=== PATIENT | male | born 1970 | race Caucasian/White ===

== ENCOUNTER 2016-08-14 18:14 | Emergency (ER) | payer OTHER ==
[~2016-08-14] VITALS: Ht 172.7 cm; Wt 75.4 kg
[2016-08-14 18:48] LABS: HEMATOCRIT 43.2 % (38.0-50.0); MCH 27.2 PG (29.0-34.0); MCV 79.9 FL (86-99); MEAN PLAT.VOLUME 8.6 uM^3 (9.0-12.4); PLATELET COUNT 612 K/uL (156-360); RBC DIS.WIDTH-CV 12.5 % (11.8-14.6); RBC DIS.WIDTH-SD 35.5 % (39-53); RED BLOOD COUNT 5.41 M/uL (4.00-5.50); WHITE BLOOD COUNT 14.4 K/uL (4.1-10.2)
[2016-08-14 18:57] LABS: CHLORIDE 99 mEq/L (99-109); POTASSIUM 3.4 mEq/L (3.7-5.4); SODIUM 135 mEq/L (136-147)
[2016-08-14 18:59] LABS: GLUCOSE 91 mg/dL (70-99)
[2016-08-14 19:00] LABS: ANION GAP 14 MEQ/L (2-14)
[2016-08-14 19:01] LABS: TOTAL BILIRUBIN 1.2 mg/dL (0.0-1.0)
[2016-08-14 19:03] LABS: ALKALINE PHOSPHATASE 72 IU/L (3-129); GFR ESTIMATE (CALCULATED) > 59 mL/min/
[2016-08-14 19:04] LABS: UREA NITROGEN (BUN) 11 mg/dL (9-23)
[2016-08-14 19:06] LABS: LIPASE 27 U/L (1.0-51.0)
[2016-08-14] MEDS ORDERED: PENTASA500 MG PO (22:18)
[2016-08-14] MEDS ORDERED: ZOFRAN ODT4 MG PO (22:18)
[2016-08-14] MEDS ORDERED: FLAGYL500 MG PO (22:18)
[2016-08-14] MEDS ORDERED: PERCOCET 5/31 TABLET PO (22:18)
[2016-08-14] MEDS ORDERED: LEVSIN-SL0.125 MG SL (22:31)
[2016-08-14 22:53] LABS: INTERNAL CONTROL VALID? YES
[2016-08-14 23:23] VITALS: BP 144/100
[2016-08-14 23:31] LABS: C DIFF TOXIN NEGATIVE (NEGATIVE)
[2016-08-14 23:32] LABS: PROBE CHECK PASS; SPECIMEN PROCESSING CONTROL PASS
== END 2016-08-14 23:25 | disposition home or self-care (01) ==
LOC: EME 18:14
PROVIDERS: Nurse Practitioner Family; Physician Assistant
DX: K50.90 Crohn's disease, unspecified, without complications (principal); D72.829 Elevated white blood cell count, unspecified; R10.9 Unspecified abdominal pain
CPT/HCPCS: 74177; 80053; 81003; 83630; 83690; 85027; 86850; 86900; 86901; 87177; 87493; 87506; 99281; 99285; J1200; J2270; J2405; J7030

== ENCOUNTER 2016-09-04 22:37 | Emergency (ER) | payer OTHER ==
[~2016-09-04] VITALS: Ht 172.7 cm; Wt 75.8 kg
[~2016-09-04 22:37] MED LIST: FLAGYL500 MG PO; LEVSIN-SL0.125 MG SL; PENTASA500 MG PO; PERCOCET 5/31 TABLET PO; ZOFRAN ODT4 MG PO
[2016-09-04 23:18] LABS: ADD MIUA? NO; BILIRUBIN NEGATIVE; BLOOD NEGATIVE; COLOR YELLOW ((YELLOW)); GLUCOSE (STRIP) NEGATIVE; KETONES NEGATIVE; LEUKOCYTES NEGATIVE; NITRITE NEGATIVE; PROTEIN (STRIP) NEGATIVE; SPECIFIC GRAVITY 1.014 (1.000-1.030); UCUL ADDED? NO; UROBILINOGEN 0.2 MG/DL (0.2-1.0)
[2016-09-04 23:27] LABS: EOSINOPHIL (%) 2.9 % (0-5); EOSINOPHIL COUNT 0.4 K/uL (0-0.3); HEMATOCRIT 42.4 % (38.0-50.0); IMMATURE GRANULOCYTE (%) 0.3 % (0.0-0.7); IMMATURE GRANULOCYTE COUNT 0.1 K/uL; INSTRUMENT ABS NEUTROPHIL CT 10.1 K/uL; LYMPHOCYTE COUNT 2.7 K/uL (1.0-2.8); MCH 26.3 PG (29.0-34.0); MCHC 32.3 G/DL (30.0-36.0); MCV 81.4 FL (86-99); MEAN PLAT.VOLUME 8.6 uM^3 (9.0-12.4); MONOCYTE (%) 7.3 % (3-12); MONOCYTE COUNT 1.1 K/uL (0-0.8); NEUTROPHIL (%) 70.2 % (45-76); NEUTROPHIL COUNT 10.1 K/uL (1.8-6.4); PLATELET COUNT 643 K/uL (156-360); RBC DIS.WIDTH-CV 12.9 % (11.8-14.6); RBC DIS.WIDTH-SD 38.1 % (39-53); RED BLOOD COUNT 5.21 M/uL (4.00-5.50); WHITE BLOOD COUNT 14.4 K/uL (4.1-10.2)
[2016-09-04 23:39] LABS: CHLORIDE 103 mEq/L (99-109); SODIUM 139 mEq/L (136-147)
[2016-09-04 23:41] LABS: GLUCOSE 114 mg/dL (70-99)
[2016-09-04 23:43] LABS: ANION GAP 12 MEQ/L (2-14); TOTAL BILIRUBIN 0.7 mg/dL (0.0-1.0)
[2016-09-04 23:45] LABS: ALKALINE PHOSPHATASE 78 IU/L (3-129); GFR ESTIMATE (CALCULATED) > 59 mL/min/
[2016-09-04 23:46] LABS: UREA NITROGEN (BUN) 9 mg/dL (9-23)
[2016-09-04 23:48] LABS: LIPASE 41 U/L (1.0-51.0)
[2016-09-05 00:07] VITALS: BP 140/96
[2016-09-05] MEDS ORDERED: PENTASA500 MG PO (00:48)
[2016-09-05] MEDS ORDERED: PERCOCET 5/31 TABLET PO (00:48)
[2016-09-05] MEDS ORDERED: FLAGYL500 MG PO (00:48)
[2016-09-05] MEDS ORDERED: ZOFRAN ODT4 MG PO (00:48)
[2016-09-05] MEDS ORDERED: PREDNISONE20 MG PO (00:48)
[2016-09-05 00:53] LABS: C DIFF TOXIN NEGATIVE (NEGATIVE)
[2016-09-05 00:54] LABS: PROBE CHECK PASS; SPECIMEN PROCESSING CONTROL PASS
[2016-09-05] MEDS ORDERED: POTASSIUM CHLO10 ME4 PO (01:14)
[2016-09-06] MEDS ORDERED: DELZICOL400 M1 PO (23:53)
== END 2016-09-05 01:14 | disposition home or self-care (01) ==
LOC: EME 22:37
PROVIDERS: Physician Assistant
DX: K50.90 Crohn's disease, unspecified, without complications (principal); Z91.14 Patient's other noncompliance with medication regimen
CPT/HCPCS: 74176; 80053; 81003; 83605; 83690; 85025; 85027; 87206; 87329; 87493; 87506; 99281; 99285; J1885; J2405; J3010; J7030; J7512

== ENCOUNTER 2016-09-06 23:30 | Inpatient (IN) | payer OTHER ==
[~2016-09-06] VITALS: Ht 172.7 cm; Wt 75.0 kg
[~2016-09-06 23:30] MED LIST changes: +POTASSIUM CHLO10 ME4 PO; +PREDNISONE20 MG PO
[2016-09-06] MEDS ORDERED: DELZICOL400 M1 PO (23:53)
[2016-09-07 00:06] LABS: HEMATOCRIT 44.9 % (38.0-50.0); MCH 26.8 PG (29.0-34.0); MCHC 32.3 G/DL (30.0-36.0); MEAN PLAT.VOLUME 8.7 uM^3 (9.0-12.4); PLATELET COUNT 678 K/uL (156-360); RBC DIS.WIDTH-CV 13.4 % (11.8-14.6); RBC DIS.WIDTH-SD 40.9 % (39-53); RED BLOOD COUNT 5.41 M/uL (4.00-5.50); WHITE BLOOD COUNT 20.3 K/uL (4.1-10.2)
[2016-09-07 00:08] LABS: CHLORIDE 106 mEq/L (99-109); POTASSIUM 3.5 mEq/L (3.7-5.4); SODIUM 142 mEq/L (136-147)
[2016-09-07 00:10] LABS: GLUCOSE 113 mg/dL (70-99)
[2016-09-07 00:11] LABS: ANION GAP 10 MEQ/L (2-14)
[2016-09-07 00:14] LABS: ALKALINE PHOSPHATASE 75 IU/L (3-129); GFR ESTIMATE (CALCULATED) > 59 mL/min/
[2016-09-07 00:15] LABS: UREA NITROGEN (BUN) 12 mg/dL (9-23)
[2016-09-07 00:17] LABS: LIPASE 22 U/L (1.0-51.0); TOTAL BILIRUBIN 0.9 mg/dL (0.0-1.0)
[2016-09-07] MEDS ORDERED: HYOSCYAMINE0.125 M1 SL (01:05)
[2016-09-07] MEDS ORDERED: PREDNISONE20 MG PO (01:06)
[2016-09-07 06:17] LABS: ADD MIUA? NO; BILIRUBIN NEGATIVE; BLOOD NEGATIVE; COLOR YELLOW ((YELLOW)); GLUCOSE (STRIP) NEGATIVE; KETONES NEGATIVE; LEUKOCYTES NEGATIVE; NITRITE NEGATIVE; PROTEIN (STRIP) NEGATIVE; UCUL ADDED? NO; UROBILINOGEN 0.2 MG/DL (0.2-1.0)
[2016-09-07 07:03] LABS: SPECIFIC GRAVITY 1.086 (1.000-1.030)
[2016-09-07 07:15] VITALS: BP 120/72
[2016-09-07 09:13] LABS: HEMATOCRIT 41.5 % (38.0-50.0); MCH 26.7 PG (29.0-34.0); MCHC 31.6 G/DL (30.0-36.0); MCV 84.7 FL (86-99); MEAN PLAT.VOLUME 8.7 uM^3 (9.0-12.4); PLATELET COUNT 563 K/uL (156-360); RBC DIS.WIDTH-CV 13.6 % (11.8-14.6); RBC DIS.WIDTH-SD 42.1 % (39-53); WHITE BLOOD COUNT 21.9 K/uL (4.1-10.2)
[2016-09-07 09:37] LABS: ANION GAP 8 MEQ/L (2-14); CHLORIDE 107 MEQ/L (99-109); GFR ESTIMATE (CALCULATED) > 59 mL/min/; GLUCOSE 88 mg/dL (70-99); POTASSIUM 3.6 MEQ/L (3.7-5.4); SAMPLE HEMOLYSIS CHECK 0; SAMPLE ICTERIC CHECK 0; SAMPLE LIPEMIA CHECK 0; SODIUM 143 MEQ/L (136-147); UREA NITROGEN (BUN) 11 mg/dL (9-23)
[2016-09-07 15:30] VITALS: BP 105/73
[2016-09-07 21:16] VITALS: BP 128/71
[2016-09-07 23:22] VITALS: BP 120/71
[2016-09-08 06:43] LABS: EOSINOPHIL (%) 0 % (0-5); HEMATOCRIT 39.4 % (38.0-50.0); IMMATURE GRANULOCYTE (%) 0.7 % (0.0-0.7); IMMATURE GRANULOCYTE COUNT 0.1 K/uL; INSTRUMENT ABS NEUTROPHIL CT 11.5 K/uL; LYMPHOCYTE COUNT 1.3 K/uL (1.0-2.8); MCH 26.3 PG (29.0-34.0); MCHC 31.5 G/DL (30.0-36.0); MCV 83.7 FL (86-99); MEAN PLAT.VOLUME 8.8 uM^3 (9.0-12.4); MONOCYTE (%) 2.7 % (3-12); MONOCYTE COUNT 0.4 K/uL (0-0.8); NEUTROPHIL (%) 86.9 % (45-76); NEUTROPHIL COUNT 11.5 K/uL (1.8-6.4); PLATELET COUNT 512 K/uL (156-360); RBC DIS.WIDTH-CV 13.3 % (11.8-14.6); RBC DIS.WIDTH-SD 41.2 % (39-53); RED BLOOD COUNT 4.71 M/uL (4.00-5.50)
[2016-09-08 06:44] LABS: WHITE BLOOD COUNT 13.2 K/uL (4.1-10.2)
[2016-09-08 07:09] LABS: ANION GAP 8 MEQ/L (2-14); CHLORIDE 108 MEQ/L (99-109); GFR ESTIMATE (CALCULATED) > 59 mL/min/; POTASSIUM 3.8 MEQ/L (3.7-5.4); SAMPLE HEMOLYSIS CHECK 0; SAMPLE ICTERIC CHECK 0; SAMPLE LIPEMIA CHECK 0; SODIUM 143 MEQ/L (136-147); UREA NITROGEN (BUN) 12 mg/dL (9-23)
[2016-09-08 07:10] LABS: GLUCOSE 137 mg/dL (70-99)
[2016-09-08 07:25] VITALS: BP 130/82
[2016-09-08 20:00] VITALS: BP 132/78
[2016-09-08 22:38] VITALS: BP 117/78
[2016-09-09 04:00] VITALS: BP 120/74
[2016-09-09 07:11] LABS: EOSINOPHIL (%) 0 % (0-5); HEMATOCRIT 37.5 % (38.0-50.0); IMMATURE GRANULOCYTE (%) 0.6 % (0.0-0.7); IMMATURE GRANULOCYTE COUNT 0.1 K/uL; INSTRUMENT ABS NEUTROPHIL CT 13.7 K/uL; LYMPHOCYTE COUNT 1.5 K/uL (1.0-2.8); MCH 26.7 PG (29.0-34.0); MCHC 32.3 G/DL (30.0-36.0); MCV 82.8 FL (86-99); MEAN PLAT.VOLUME 9.4 uM^3 (9.0-12.4); MONOCYTE (%) 3.1 % (3-12); MONOCYTE COUNT 0.5 K/uL (0-0.8); NEUTROPHIL COUNT 13.7 K/uL (1.8-6.4); PLATELET COUNT 469 K/uL (156-360); RBC DIS.WIDTH-CV 13.3 % (11.8-14.6); RBC DIS.WIDTH-SD 40.1 % (39-53); RED BLOOD COUNT 4.53 M/uL (4.00-5.50); WHITE BLOOD COUNT 15.8 K/uL (4.1-10.2)
[2016-09-09 07:14] VITALS: BP 116/57
[2016-09-09 07:36] LABS: ANION GAP 9 MEQ/L (2-14); CHLORIDE 106 MEQ/L (99-109); GFR ESTIMATE (CALCULATED) > 59 mL/min/; GLUCOSE 122 mg/dL (70-99); POTASSIUM 3.6 MEQ/L (3.7-5.4); SAMPLE HEMOLYSIS CHECK 0; SAMPLE ICTERIC CHECK 0; SAMPLE LIPEMIA CHECK 0; SODIUM 142 MEQ/L (136-147); UREA NITROGEN (BUN) 14 mg/dL (9-23)
[2016-09-09 16:06] VITALS: BP 127/80
[2016-09-09 19:12] VITALS: BP 134/79
[2016-09-10 05:16] LABS: EOSINOPHIL (%) 0 % (0-5); HEMATOCRIT 38.3 % (38.0-50.0); IMMATURE GRANULOCYTE (%) 0.9 % (0.0-0.7); IMMATURE GRANULOCYTE COUNT 0.2 K/uL; INSTRUMENT ABS NEUTROPHIL CT 14.4 K/uL; LYMPHOCYTE COUNT 2.1 K/uL (1.0-2.8); MCH 27.4 PG (29.0-34.0); MCHC 33.4 G/DL (30.0-36.0); MCV 81.8 FL (86-99); MEAN PLAT.VOLUME 8.9 uM^3 (9.0-12.4); MONOCYTE (%) 7.2 % (3-12); MONOCYTE COUNT 1.3 K/uL (0-0.8); NEUTROPHIL (%) 80.2 % (45-76); NEUTROPHIL COUNT 14.4 K/uL (1.8-6.4); PLATELET COUNT 470 K/uL (156-360); RBC DIS.WIDTH-CV 13.2 % (11.8-14.6); RBC DIS.WIDTH-SD 39.4 % (39-53); RED BLOOD COUNT 4.68 M/uL (4.00-5.50); WHITE BLOOD COUNT 17.9 K/uL (4.1-10.2)
[2016-09-10 07:35] VITALS: BP 115/74
[2016-09-10 08:34] LABS: ANION GAP 11 MEQ/L (2-14); CHLORIDE 104 MEQ/L (99-109); GFR ESTIMATE (CALCULATED) > 59 mL/min/; POTASSIUM 3.6 MEQ/L (3.7-5.4); SAMPLE HEMOLYSIS CHECK 0; SAMPLE ICTERIC CHECK 0; SAMPLE LIPEMIA CHECK 0; SODIUM 141 MEQ/L (136-147); UREA NITROGEN (BUN) 16 mg/dL (9-23)
[2016-09-10 08:42] LABS: GLUCOSE 82 mg/dL (70-99)
[2016-09-10 14:25] LABS: C DIFF TOXIN ND (NEGATIVE)
[2016-09-10 16:13] VITALS: BP 155/87
[2016-09-11 00:11] VITALS: BP 122/79
[2016-09-11 06:52] LABS: EOSINOPHIL (%) 0.1 % (0-5); HEMATOCRIT 39.5 % (38.0-50.0); IMMATURE GRANULOCYTE (%) 1.7 % (0.0-0.7); IMMATURE GRANULOCYTE COUNT 0.3 K/uL; INSTRUMENT ABS NEUTROPHIL CT 10.5 K/uL; LYMPHOCYTE COUNT 2.6 K/uL (1.0-2.8); MCH 26.6 PG (29.0-34.0); MCHC 32.9 G/DL (30.0-36.0); MCV 80.9 FL (86-99); MEAN PLAT.VOLUME 9.3 uM^3 (9.0-12.4); MONOCYTE (%) 8.5 % (3-12); MONOCYTE COUNT 1.3 K/uL (0-0.8); NEUTROPHIL (%) 71.6 % (45-76); NEUTROPHIL COUNT 10.5 K/uL (1.8-6.4); PLATELET COUNT 485 K/uL (156-360); RBC DIS.WIDTH-CV 13.2 % (11.8-14.6); RBC DIS.WIDTH-SD 38.9 % (39-53); RED BLOOD COUNT 4.88 M/uL (4.00-5.50); WHITE BLOOD COUNT 14.6 K/uL (4.1-10.2)
[2016-09-11 07:17] LABS: ANION GAP 9 MEQ/L (2-14); CHLORIDE 102 MEQ/L (99-109); GFR ESTIMATE (CALCULATED) > 59 mL/min/; GLUCOSE 91 mg/dL (70-99); POTASSIUM 3.2 MEQ/L (3.7-5.4); SAMPLE HEMOLYSIS CHECK 0; SAMPLE ICTERIC CHECK 0; SAMPLE LIPEMIA CHECK 0; SODIUM 140 MEQ/L (136-147); UREA NITROGEN (BUN) 14 mg/dL (9-23)
[2016-09-11 07:27] VITALS: BP 117/64
[2016-09-11] MEDS ORDERED: CIPROFLOXACIN500 M1 PO (12:34)
[2016-09-11] MEDS ORDERED: METRONIDAZOLE500 MG PO (12:34)
[2016-09-11] MEDS ORDERED: PREDNISONE10 MG PO (12:34)
[2016-09-11] MEDS ORDERED: PERCOCET 5/31 TABLET PO (12:36)
== END 2016-09-11 13:35 | disposition home or self-care (01) | DRG 386 ==
LOC: EME 23:30 → EXP 23:30 → 5EAST 09-07 04:42 → EDOF 09-07 04:42 → 5EAST 09-07 07:03
PROVIDERS: Hospitalist
DX: K50.112 Crohn's disease of large intestine with intestinal obstruction (principal); E87.6 Hypokalemia; D50.9 Iron deficiency anemia, unspecified
CPT/HCPCS: 71010; 74176; 74177; 80048; 80053; 81003; 83605; 83690; 85025; 85027; 87040; 87206; 87329; 87493; 87506; 99281; 99285; J0696; J0744; J1200; J1644; J1885; J2270; J2405; J2930; J3010; J3480; J7030; J7042; J7050; J7512; S0028; S0030

== ENCOUNTER 2016-09-18 00:40 | Inpatient (IN) | payer OTHER ==
[~2016-09-18] VITALS: Ht 170.2 cm; Wt 75.3 kg
[~2016-09-18 00:40] MED LIST changes: +CIPROFLOXACIN500 M1 PO; +DELZICOL400 M1 PO; +HYOSCYAMINE0.125 M1 SL; +METRONIDAZOLE500 MG PO; +PREDNISONE10 MG PO
[2016-09-18 01:35] LABS: HEMATOCRIT 42.3 % (38.0-50.0); MCH 27.4 PG (29.0-34.0); MCHC 33.3 G/DL (30.0-36.0); MCV 82.3 FL (86-99); MEAN PLAT.VOLUME 8.7 uM^3 (9.0-12.4); PLATELET COUNT 548 K/uL (156-360); RBC DIS.WIDTH-CV 14.5 % (11.8-14.6); RBC DIS.WIDTH-SD 43.3 % (39-53); RED BLOOD COUNT 5.14 M/uL (4.00-5.50)
[2016-09-18 01:37] LABS: WHITE BLOOD COUNT 28.8 K/uL (4.1-10.2)
[2016-09-18 01:38] LABS: CHLORIDE 106 mEq/L (99-109); POTASSIUM 3.3 mEq/L (3.7-5.4); SODIUM 139 mEq/L (136-147)
[2016-09-18 01:40] LABS: GLUCOSE 134 mg/dL (70-99)
[2016-09-18 01:41] LABS: ANION GAP 9 MEQ/L (2-14)
[2016-09-18 01:42] LABS: TOTAL BILIRUBIN 0.8 mg/dL (0.0-1.0)
[2016-09-18 01:44] LABS: ALKALINE PHOSPHATASE 55 IU/L (3-129); GFR ESTIMATE (CALCULATED) > 59 mL/min/
[2016-09-18 01:54] LABS: UREA NITROGEN (BUN) 22 mg/dL (9-23)
[2016-09-18 02:05] LABS: LIPASE 124 U/L (1.0-51.0)
[2016-09-18 02:49] LABS: ADD MIUA? YES; BILIRUBIN NEGATIVE; BLOOD NEGATIVE; COLOR YELLOW ((YELLOW)); GLUCOSE (STRIP) NEGATIVE; KETONES NEGATIVE; LEUKOCYTES TRACE; NITRITE NEGATIVE; PROTEIN (STRIP) NEGATIVE; SPECIFIC GRAVITY 1.025 (1.000-1.030); UROBILINOGEN 0.2 MG/DL (0.2-1.0)
[2016-09-18 03:08] LABS: BACTERIA RARE /HPF; CALCIUM OXALATE CRYSTALS 3+ /HPF; EPITHELIAL CELLS NONE SEEN /HPF; MUCUS TRACE /LPF; RED BLOOD CELLS 0-5 /HPF (0-5); UCUL ADDED? NO; WHITE BLOOD CELLS 0-5 /HPF (0-5)
[2016-09-18] MEDS ORDERED: AMBIEN5 MG PO (09:38)
[2016-09-18 09:52] VITALS: BP 149/90
== END 2016-09-18 09:54 | disposition left against medical advice (07) | DRG 386 ==
LOC: EME 00:40 → EDOF 07:52
DX: K50.812 Crohn's disease of both small and large intestine with intestinal obstruction (principal); E86.0 Dehydration
CPT/HCPCS: 74176; 80053; 81003; 83690; 85027; 99281; 99285; J2270; J2405; J2543; J7030; J7050

== ENCOUNTER 2016-09-26 11:19 | Emergency (ER) | payer OTHER ==
[~2016-09-26] VITALS: Ht 172.7 cm; Wt 75.0 kg
[~2016-09-26 11:19] MED LIST changes: +AMBIEN5 MG PO
[2016-09-26 12:34] LABS: ADD MIUA? YES; BILIRUBIN NEGATIVE; BLOOD NEGATIVE; COLOR AMBER ((YELLOW)); GLUCOSE (STRIP) NEGATIVE; KETONES 5; LEUKOCYTES NEGATIVE; NITRITE NEGATIVE; PROTEIN (STRIP) NEGATIVE; SPECIFIC GRAVITY 1.024 (1.000-1.030); UROBILINOGEN 0.2 MG/DL (0.2-1.0)
[2016-09-26 12:41] LABS: BACTERIA RARE /HPF; CALCIUM OXALATE CRYSTALS 4+ /HPF; EPITHELIAL CELLS NONE SEEN /HPF; MUCUS TRACE /LPF; RED BLOOD CELLS 0-5 /HPF (0-5); WHITE BLOOD CELLS 0-5 /HPF (0-5)
[2016-09-26 12:49] LABS: EOSINOPHIL (%) 0.1 % (0-5); HEMATOCRIT 44.3 % (38.0-50.0); IMMATURE GRANULOCYTE (%) 1.2 % (0.0-0.7); IMMATURE GRANULOCYTE COUNT 0.3 K/uL; INSTRUMENT ABS NEUTROPHIL CT 19.9 K/uL; LYMPHOCYTE COUNT 1.1 K/uL (1.0-2.8); MCH 27.2 PG (29.0-34.0); MCHC 32.5 G/DL (30.0-36.0); MCV 83.6 FL (86-99); MEAN PLAT.VOLUME 8.6 uM^3 (9.0-12.4); MONOCYTE (%) 1.7 % (3-12); MONOCYTE COUNT 0.4 K/uL (0-0.8); NEUTROPHIL (%) 91.8 % (45-76); NEUTROPHIL COUNT 19.9 K/uL (1.8-6.4); PLATELET COUNT 407 K/uL (156-360); RBC DIS.WIDTH-CV 15.7 % (11.8-14.6); RBC DIS.WIDTH-SD 47.1 % (39-53); WHITE BLOOD COUNT 21.7 K/uL (4.1-10.2)
[2016-09-26 14:18] LABS: CHLORIDE 110 mEq/L (99-109); POTASSIUM 4.3 mEq/L (3.7-5.4); SODIUM 137 mEq/L (136-147)
[2016-09-26 14:20] LABS: GLUCOSE 108 mg/dL (70-99)
[2016-09-26 14:22] LABS: ANION GAP 6 MEQ/L (2-14); TOTAL BILIRUBIN 1.3 mg/dL (0.0-1.0)
[2016-09-26 14:24] LABS: ALKALINE PHOSPHATASE 48 IU/L (3-129); GFR ESTIMATE (CALCULATED) > 59 mL/min/
[2016-09-26 14:25] LABS: UREA NITROGEN (BUN) 10 mg/dL (9-23)
[2016-09-26] MEDS ORDERED: PERCOCET 5/31 TABLET PO (16:06)
[2016-09-26] MEDS ORDERED: LIDOCAINE20 MG/1 M5 PO (16:18)
[2016-09-26] MEDS ORDERED: ATIVAN1 MG PO (16:18)
[2016-09-26 16:29] VITALS: BP 140/88
== END 2016-09-26 16:30 | disposition home or self-care (01) ==
LOC: EME 11:19
PROVIDERS: Physician Assistant
DX: K50.90 Crohn's disease, unspecified, without complications (principal); F32.9 Major depressive disorder, single episode, unspecified
CPT/HCPCS: 74176; 80053; 81003; 85025; 99281; 99284; J2270

== ENCOUNTER → 2016-10-28 | Outpatient (CLI) | payer OTHER ==
[~2016-10-28] MED LIST changes: +AMBIEN10 MG PO; +ATIVAN1 MG PO; +DESYREL100 MG PO; +LIDOCAINE20 MG/1 M5 PO; +RAYOS5 MG PO
== END | disposition home or self-care (01) ==
LOC: RAD 10:51
DX: Z87.19 Personal history of other diseases of the digestive system (principal)
CPT/HCPCS: 71020

== ENCOUNTER → 2016-10-28 | Outpatient (CLI) | payer OTHER ==
[~2016-10-28] VITALS: Ht 172.7 cm; Wt 74.8 kg
== END | disposition home or self-care (01) ==
LOC: AMB 10-13 12:00
PROC: 0DBE8ZX Excision of Large Intestine, Via Natural or Artificial Opening Endoscopic, Diagnostic (ICD-10-PCS; principal; 2016-10-28)
DX: K63.3 Ulcer of intestine (principal); K50.911 Crohn's disease, unspecified, with rectal bleeding; K63.89 Other specified diseases of intestine; Z82.49 Family history of ischemic heart disease and other diseases of the circulatory system; Z83.79 Family history of other diseases of the digestive system
CPT/HCPCS: 88305

== ENCOUNTER 2016-12-26 13:46 | Inpatient (IN) | payer OTHER ==
[~2016-12-26] VITALS: Ht 172.7 cm; Wt 75.9 kg
[2016-12-26 14:49] LABS: HEMATOCRIT 46.3 % (38.0-50.0); MCHC 32.6 G/DL (30.0-36.0); MCV 82.8 FL (86-99); MEAN PLAT.VOLUME 8.8 uM^3 (9.0-12.4); PLATELET COUNT 402 K/uL (156-360); RBC DIS.WIDTH-CV 13.6 % (11.8-14.6); RBC DIS.WIDTH-SD 41.3 % (39-53); RED BLOOD COUNT 5.59 M/uL (4.00-5.50); WHITE BLOOD COUNT 16.8 K/uL (4.1-10.2)
[2016-12-26 14:59] LABS: CHLORIDE 102 mEq/L (99-109); POTASSIUM 4.2 mEq/L (3.7-5.4); SODIUM 139 mEq/L (136-147)
[2016-12-26 15:01] LABS: GLUCOSE 98 mg/dL (70-99)
[2016-12-26 15:03] LABS: ANION GAP 11 MEQ/L (2-14); TOTAL BILIRUBIN 2.1 mg/dL (0.0-1.0)
[2016-12-26 15:05] LABS: ALKALINE PHOSPHATASE 79 IU/L (3-129); GFR ESTIMATE (CALCULATED) > 59 mL/min/
[2016-12-26 15:06] LABS: UREA NITROGEN (BUN) 14 mg/dL (9-23)
[2016-12-26 15:08] LABS: LIPASE 18 U/L (1.0-51.0)
[2016-12-26] MEDS ORDERED: ROXICODONE15 MG PO (19:27)
[2016-12-26] MEDS ORDERED: HUMIRA40 MG/0.8 SC (19:28)
[2016-12-26] MEDS ORDERED: MULTIVITAMIN1 EAC2 PO (19:29)
[2016-12-26 23:42] VITALS: BP 117/64
[2016-12-27 03:43] VITALS: BP 111/68
[2016-12-27 04:56] LABS: ADD MIUA? NO; BILIRUBIN NEGATIVE; BLOOD NEGATIVE; COLOR YELLOW ((YELLOW)); GLUCOSE (STRIP) NEGATIVE; KETONES 20; LEUKOCYTES NEGATIVE; NITRITE NEGATIVE; PROTEIN (STRIP) NEGATIVE; SPECIFIC GRAVITY 1.023 (1.000-1.030); UCUL ADDED? NO; UROBILINOGEN 0.2 MG/DL (0.2-1.0)
[2016-12-27 06:55] VITALS: BP 103/53
[2016-12-27 07:23] LABS: C DIFF TOXIN ND (NEGATIVE)
[2016-12-27 07:35] LABS: HEMATOCRIT 39.3 % (38.0-50.0); MCH 28.4 PG (29.0-34.0); MCHC 33.3 G/DL (30.0-36.0); MCV 85.1 FL (86-99); MEAN PLAT.VOLUME 9.2 uM^3 (9.0-12.4); PLATELET COUNT 329 K/uL (156-360); RBC DIS.WIDTH-CV 13.7 % (11.8-14.6); RBC DIS.WIDTH-SD 42.6 % (39-53); RED BLOOD COUNT 4.62 M/uL (4.00-5.50); WHITE BLOOD COUNT 9.1 K/uL (4.1-10.2)
[2016-12-27 07:49] LABS: ALKALINE PHOSPHATASE 57 IU/L (3-129); ANION GAP 7 MEQ/L (2-14); CHLORIDE 108 MEQ/L (99-109); GFR ESTIMATE (CALCULATED) > 59 mL/min/; GLUCOSE 145 mg/dL (70-99); POTASSIUM 4.7 MEQ/L (3.7-5.4); SAMPLE HEMOLYSIS CHECK 0; SAMPLE ICTERIC CHECK 0; SAMPLE LIPEMIA CHECK 0; SODIUM 141 MEQ/L (136-147); TOTAL BILIRUBIN 1.7 MG/DL (0.0-1.0); UREA NITROGEN (BUN) 11 mg/dL (9-23)
[2016-12-27 12:05] VITALS: BP 122/67
[2016-12-27 16:05] VITALS: BP 123/52
[2016-12-27 19:25] VITALS: BP 126/71
[2016-12-28 00:14] VITALS: BP 136/78
[2016-12-28 04:00] VITALS: BP 111/78
[2016-12-28 06:17] LABS: HEMATOCRIT 34.8 % (38.0-50.0); MCH 28.7 PG (29.0-34.0); MCHC 33.9 G/DL (30.0-36.0); MCV 84.7 FL (86-99); MEAN PLAT.VOLUME 9.4 uM^3 (9.0-12.4); PLATELET COUNT 320 K/uL (156-360); RBC DIS.WIDTH-CV 13.9 % (11.8-14.6); RBC DIS.WIDTH-SD 42.9 % (39-53); RED BLOOD COUNT 4.11 M/uL (4.00-5.50); WHITE BLOOD COUNT 11.2 K/uL (4.1-10.2)
[2016-12-28 06:48] VITALS: BP 134/77
[2016-12-28 06:48] LABS: ALKALINE PHOSPHATASE 43 IU/L (3-129); ANION GAP 8 MEQ/L (2-14); CHLORIDE 109 MEQ/L (99-109); GFR ESTIMATE (CALCULATED) > 59 mL/min/; GLUCOSE 139 mg/dL (70-99); POTASSIUM 4.2 MEQ/L (3.7-5.4); SAMPLE HEMOLYSIS CHECK 0; SAMPLE ICTERIC CHECK 0; SAMPLE LIPEMIA CHECK 0; SODIUM 142 MEQ/L (136-147); UREA NITROGEN (BUN) 13 mg/dL (9-23)
[2016-12-28 15:54] VITALS: BP 128/68
[2016-12-28 20:42] VITALS: BP 110/61
[2016-12-28 23:38] VITALS: BP 133/77
[2016-12-29 06:50] VITALS: BP 118/70
[2016-12-29 07:16] LABS: EOSINOPHIL (%) 0 % (0-5); HEMATOCRIT 35.6 % (38.0-50.0); IMMATURE GRANULOCYTE (%) 1.1 % (0.0-0.7); IMMATURE GRANULOCYTE COUNT 0.1 K/uL; INSTRUMENT ABS NEUTROPHIL CT 8.9 K/uL; LYMPHOCYTE COUNT 1.3 K/uL (1.0-2.8); MCH 27.3 PG (29.0-34.0); MCHC 32.3 G/DL (30.0-36.0); MCV 84.4 FL (86-99); MEAN PLAT.VOLUME 9.3 uM^3 (9.0-12.4); MONOCYTE (%) 4.4 % (3-12); MONOCYTE COUNT 0.5 K/uL (0-0.8); NEUTROPHIL (%) 82.4 % (45-76); NEUTROPHIL COUNT 8.9 K/uL (1.8-6.4); PLATELET COUNT 361 K/uL (156-360); RBC DIS.WIDTH-CV 13.9 % (11.8-14.6); RBC DIS.WIDTH-SD 42.9 % (39-53); RED BLOOD COUNT 4.22 M/uL (4.00-5.50); WHITE BLOOD COUNT 10.8 K/uL (4.1-10.2)
[2016-12-29 07:54] LABS: ALKALINE PHOSPHATASE 43 IU/L (3-129); ANION GAP 6 MEQ/L (2-14); CHLORIDE 108 MEQ/L (99-109); GFR ESTIMATE (CALCULATED) > 59 mL/min/; GLUCOSE 128 mg/dL (70-99); MAGNESIUM 1.6 mg/dl (1.3-2.7); POTASSIUM 4.1 MEQ/L (3.7-5.4); SAMPLE HEMOLYSIS CHECK 1; SAMPLE ICTERIC CHECK 0; SAMPLE LIPEMIA CHECK 0; SODIUM 141 MEQ/L (136-147); UREA NITROGEN (BUN) 11 mg/dL (9-23)
[2016-12-29 07:56] LABS: TOTAL BILIRUBIN 0.6 MG/DL (0.0-1.0)
[2016-12-29] MEDS ORDERED: PREDNISONE5 M1 PO (14:43)
[2016-12-29 15:10] VITALS: BP 119/68
== END 2016-12-29 16:17 | disposition home or self-care (01) | DRG 394 ==
LOC: EME 13:46 → EDOF 20:16 → CANRESERV 20:16 → ENRESERV 20:16 → 2EAST 20:16 → ENRESERV 20:48 → ENRESERVDT 21:00 → ENRESERVTM 21:00 → ENRESERV 21:00 → 2EAST 22:57
PROVIDERS: Internal Medicine
DX: K91.89 Other postprocedural complications and disorders of digestive system (principal); K50.012 Crohn's disease of small intestine with intestinal obstruction; K56.5 Intestinal adhesions [bands] with obstruction (postinfection); L02.211 Cutaneous abscess of abdominal wall; G89.4 Chronic pain syndrome; Y83.2 Surgical operation with anastomosis, bypass or graft as the cause of abnormal reaction of the patient, or of later complication, without mention of misadventure at the time of the procedure; F41.9 Anxiety disorder, unspecified; Z91.040 Latex allergy status; Z90.49 Acquired absence of other specified parts of digestive tract; Z79.52 Long term (current) use of systemic steroids; Y92.9 Unspecified place or not applicable; Z83.79 Family history of other diseases of the digestive system
CPT/HCPCS: 74177; 80053; 81003; 83605; 83690; 83735; 85025; 85027; 87040; 87493; 99281; 99285; J1200; J1644; J1956; J2270; J2405; J2920; J7030; S0028; S0030

== ENCOUNTER → 2017-02-23 | Outpatient (CLI) | payer OTHER ==
[~2017-02-23] VITALS: Ht 170.2 cm; Wt 74.8 kg
[~2017-02-23] MED LIST changes: +HUMIRA40 MG/0.8 SC; +MULTIVITAMIN1 EAC2 PO; +PREDNISONE5 M1 PO; +ROXICODONE15 MG PO
== END | disposition home or self-care (01) ==
LOC: AMB 08:00
DX: K62.4 Stenosis of anus and rectum (principal); K63.3 Ulcer of intestine; K62.6 Ulcer of anus and rectum; K50.90 Crohn's disease, unspecified, without complications; Z79.52 Long term (current) use of systemic steroids
CPT/HCPCS: 88305; J3301

== ENCOUNTER 2017-05-14 20:54 | Emergency (ER) | payer OTHER ==
[~2017-05-14] VITALS: Ht 172.7 cm; Wt 82.5 kg
[2017-05-14 21:30] LABS: BASOPHIL (%) 0.2 % (0-1); BASOPHIL COUNT 0.1 K/uL (0-0.1); EOSINOPHIL (%) 0 % (0-5); HEMATOCRIT 42.3 % (38.0-50.0); HEMOGLOBIN 14.1 G/DL (12.5-16.6); IMMATURE GRANULOCYTE (%) 1.2 % (0.0-0.7); LYMPHOCYTE (%) 11.6 % (15-42); LYMPHOCYTE COUNT 2.6 K/uL (1.0-2.8); MCH 27.4 PG (29.0-34.0); MCHC 33.3 G/DL (30.0-36.0); MCV 82.3 FL (86-99); MONOCYTE (%) 5.3 % (3-12); MONOCYTE COUNT 1.2 K/uL (0-0.8); NEUTROPHIL (%) 81.7 % (45-76); NEUTROPHIL COUNT 18.5 K/uL (1.8-6.4); PLATELET COUNT 386 K/uL (156-360); RBC DIS.WIDTH-CV 14.8 % (11.8-14.6); RBC DIS.WIDTH-SD 44.7 % (39-53); RED BLOOD COUNT 5.14 M/uL (4.00-5.50); WHITE BLOOD COUNT 22.7 K/uL (4.1-10.2)
[2017-05-14 21:38] LABS: ALBUMIN 3.7 g/dL (3.2-4.8)
[2017-05-14 21:39] LABS: CHLORIDE 108 mEq/L (99-109); SODIUM 142 mEq/L (136-147)
[2017-05-14 21:41] LABS: GLUCOSE 112 mg/dL (70-99)
[2017-05-14 21:43] LABS: TOTAL BILIRUBIN 0.7 mg/dL (0.0-1.0)
[2017-05-14 21:44] LABS: ALKALINE PHOSPHATASE 61 IU/L (3-129); CREATININE 1.1 mg/dL (0.6-1.3); GFR ESTIMATE (CALCULATED) > 59 mL/min/ (58.99-99999)
[2017-05-14 21:46] LABS: AST (GOT) 12 IU/L (2-34); UREA NITROGEN (BUN) 16 mg/dL (9-23)
[2017-05-14 21:47] LABS: ALT (GPT) 29 IU/L (3-49)
[2017-05-14 21:48] LABS: LIPASE 32 U/L (1.0-51.0)
[2017-05-14 22:07] LABS: APPEARANCE CLEAR ((CLEAR)); BILIRUBIN NEGATIVE; BLOOD NEGATIVE; COLOR YELLOW ((YELLOW)); GLUCOSE (STRIP) NEGATIVE; KETONES NEGATIVE; LEUKOCYTES NEGATIVE; NITRITE NEGATIVE; PROTEIN (STRIP) NEGATIVE; SPECIFIC GRAVITY 1.021 (1.000-1.030); UROBILINOGEN 0.2 MG/DL (0.2-1.0)
[2017-05-14] MEDS ORDERED: ZOFRAN ODT4 MG PO (23:49)
[2017-05-14] MEDS ORDERED: PERCOCET 5/31 TABLET PO (23:49)
[2017-05-15 00:07] VITALS: BP 156/99
== END 2017-05-15 00:31 | disposition home or self-care (01) ==
LOC: EME 20:54
PROVIDERS: Physician Assistant
DX: K50.913 Crohn's disease, unspecified, with fistula (principal); Z88.1 Allergy status to other antibiotic agents
CPT/HCPCS: 74177; 80053; 81003; 83690; 85025; 99281; 99285; J1100; J1200; J2270; J2405; J2930; J7030

== ENCOUNTER 2017-08-12 16:09 | Emergency (ER) | payer OTHER ==
[~2017-08-12] VITALS: Ht 172.7 cm; Wt 77.7 kg
[2017-08-12] MEDS ORDERED: AMBIEN10 MG PO (16:21)
[2017-08-12 16:38] VITALS: BP 167/101
== END 2017-08-12 16:39 | disposition home or self-care (01) ==
LOC: EME 16:09
DX: G47.00 Insomnia, unspecified (principal); K50.90 Crohn's disease, unspecified, without complications; Z88.1 Allergy status to other antibiotic agents; Z91.041 Radiographic dye allergy status
CPT/HCPCS: 99281; 99283

== ENCOUNTER 2017-08-14 16:03 | Observation (INO) | payer OTHER ==
[~2017-08-14] VITALS: Ht 172.7 cm; Wt 76.5 kg
[2017-08-14 16:52] LABS: HEMATOCRIT 45.4 % (38.0-50.0); HEMOGLOBIN 15.8 G/DL (12.5-16.6); MCH 27.2 PG (29.0-34.0); MCHC 34.8 G/DL (30.0-36.0); MCV 78.3 FL (86-99); PLATELET COUNT 557 K/uL (156-360); RBC DIS.WIDTH-SD 36.5 % (39-53); WHITE BLOOD COUNT 16.4 K/uL (4.1-10.2)
[2017-08-14 17:05] LABS: CHLORIDE 98 mEq/L (99-109); POTASSIUM 3.3 mEq/L (3.7-5.4); SODIUM 132 mEq/L (136-147)
[2017-08-14 17:06] LABS: GLUCOSE 86 mg/dL (70-99)
[2017-08-14 17:10] LABS: CREATININE 1.6 mg/dL (0.6-1.3); GFR ESTIMATE (CALCULATED) 49 mL/min/ (58.99-99999)
[2017-08-14 17:11] LABS: UREA NITROGEN (BUN) 15 mg/dL (9-23)
[2017-08-14 17:15] LABS: TROP-I INTERPRETATION NEGATIVE; TROPONIN-I < 0.01 ng/mL (0.0-0.30)
[2017-08-14] MEDS ORDERED: ZOFRAN4 MG PO (18:03)
[2017-08-14] MEDS ORDERED: PROTONIX40 MG PO (18:04)
[2017-08-14] MEDS ORDERED: CYANOCOBAL1000 MCG/2 IM (18:05)
[2017-08-14 19:13] LABS: THYROTROPIN (TSH) 2.9 MIU/L (0.4-5.5)
[2017-08-14 19:25] LABS: CARBON DIOXIDE (BICARBONATE) 26.2 MEQ/L (20-31)
[2017-08-14 19:28] LABS: TOTAL BILIRUBIN 0.8 MG/DL (0.0-1.0)
[2017-08-14 19:29] LABS: ALKALINE PHOSPHATASE 71 IU/L (3-129); ALT (GPT) 44 IU/L (3-49); AST (GOT) 23 IU/L (2-34); DIRECT BILIRUBIN 0.2 mg/dL (0.0-0.3); TOTAL PROTEIN 7.8 G/DL (6.4-8.3)
[2017-08-14 20:35] VITALS: BP 123/79
[2017-08-14 20:51] LABS: CREATINE KINASE 56 IU/L (1-294)
[2017-08-14 23:11] LABS: C DIFF TOXIN NEGATIVE (NEGATIVE)
[2017-08-14 23:15] VITALS: BP 110/69
[2017-08-15 03:39] VITALS: BP 96/51
[2017-08-15 06:54] VITALS: BP 110/58
[2017-08-15 07:18] LABS: TROP-I INTERPRETATION NEGATIVE; TROPONIN-I 0.01 ng/mL (0.0-0.30)
[2017-08-15 07:23] LABS: CHLORIDE 108 MEQ/L (99-109); CREATINE KINASE 35 IU/L (1-294); CREATININE 1.3 MG/DL (0.6-1.3); GFR ESTIMATE (CALCULATED) > 59 mL/min/ (58.99-99999); GLUCOSE 102 mg/dL (70-99); SODIUM 137 MEQ/L (136-147); UREA NITROGEN (BUN) 14 mg/dL (9-23)
[2017-08-15 07:32] LABS: POTASSIUM 4.4 MEQ/L (3.7-5.4)
[2017-08-17 05:41] LABS: ALDOLASE+ 3.8 U/L (<=8.1)
== END 2017-08-15 08:20 | disposition left against medical advice (07) ==
LOC: EME 16:03 → EDOF 19:31 → 5WEST 19:31 → EDOF 19:31 → ENRESERV 19:36 → 5WEST 20:20
PROVIDERS: Physician Assistant Medical
DX: R06.02 Shortness of breath (principal); E86.0 Dehydration; E87.1 Hypo-osmolality and hyponatremia; E87.6 Hypokalemia; N17.9 Acute kidney failure, unspecified; D72.829 Elevated white blood cell count, unspecified; K50.90 Crohn's disease, unspecified, without complications; G89.4 Chronic pain syndrome; E03.9 Hypothyroidism, unspecified; K21.9 Gastro-esophageal reflux disease without esophagitis; F41.9 Anxiety disorder, unspecified; Z87.891 Personal history of nicotine dependence; R00.0 Tachycardia, unspecified; Z87.19 Personal history of other diseases of the digestive system; Z83.79 Family history of other diseases of the digestive system; Z91.041 Radiographic dye allergy status; Z79.4 Long term (current) use of insulin; Z79.899 Other long term (current) drug therapy
CPT/HCPCS: 71046; 80048; 80076; 82024 90; 82085 90; 82533 91; 82550; 82803; 83605; 84443; 84484; 85027; 85379; 87493; 93005; 94640; 99281; 99285; G0378; J2405; J3480; J7030

== ENCOUNTER 2017-10-05 20:08 | Emergency (ER) | payer OTHER ==
[~2017-10-05] VITALS: Ht 172.7 cm; Wt 77.0 kg
[~2017-10-05 20:08] MED LIST changes: +CYANOCOBAL1000 MCG/2 IM; +PROTONIX40 MG PO; +ZOFRAN4 MG PO
[2017-10-05 20:27] LABS: HEMATOCRIT 41.1 % (38.0-50.0); HEMOGLOBIN 13.6 G/DL (12.5-16.6); MCH 25.7 PG (29.0-34.0); MCHC 33.1 G/DL (30.0-36.0); MCV 77.7 FL (86-99); PLATELET COUNT 575 K/uL (156-360); RBC DIS.WIDTH-CV 13.6 % (11.8-14.6); RBC DIS.WIDTH-SD 38.5 % (39-53); RED BLOOD COUNT 5.29 M/uL (4.00-5.50); WHITE BLOOD COUNT 16.7 K/uL (4.1-10.2)
[2017-10-05 20:38] LABS: ALBUMIN 3.8 g/dL (3.2-4.8); CHLORIDE 107 mEq/L (99-109); POTASSIUM 3.3 mEq/L (3.7-5.4); SODIUM 141 mEq/L (136-147)
[2017-10-05 20:41] LABS: GLUCOSE 124 mg/dL (70-99)
[2017-10-05 20:42] LABS: TOTAL BILIRUBIN 0.6 mg/dL (0.0-1.0)
[2017-10-05 20:44] LABS: ALKALINE PHOSPHATASE 85 IU/L (3-129); CREATININE 1.1 mg/dL (0.6-1.3); GFR ESTIMATE (CALCULATED) > 59 mL/min/ (58.99-99999)
[2017-10-05 20:45] LABS: UREA NITROGEN (BUN) 3 mg/dL (9-23)
[2017-10-05 20:46] LABS: AST (GOT) 17 IU/L (2-34)
[2017-10-05 20:47] LABS: ALT (GPT) 22 IU/L (3-49)
[2017-10-05 20:48] LABS: LIPASE 31 U/L (1.0-51.0)
[2017-10-05 22:50] LABS: APPEARANCE SL.HAZY ((CLEAR)); BILIRUBIN NEGATIVE; BLOOD NEGATIVE; COLOR AMBER ((YELLOW)); GLUCOSE (STRIP) NEGATIVE; KETONES NEGATIVE; LEUKOCYTES NEGATIVE; NITRITE NEGATIVE; PROTEIN (STRIP) NEGATIVE; SPECIFIC GRAVITY 1.015 (1.000-1.030); UROBILINOGEN 0.2 MG/DL (0.2-1.0)
[2017-10-05 23:09] LABS: BACTERIA RARE /HPF; EPITHELIAL CELLS NONE SEEN /HPF; MUCUS TRACE /LPF; RED BLOOD CELLS 0-5 /HPF (0-5); UCUL ADDED? NO; WHITE BLOOD CELLS 0-5 /HPF (0-5)
[2017-10-06] MEDS ORDERED: CIPRO500 MG PO (00:37)
[2017-10-06] MEDS ORDERED: FLAGYL500 MG PO (00:37)
[2017-10-06] MEDS ORDERED: OXYCODONE HCL15 MG PO (00:41)
[2017-10-06 02:59] VITALS: BP 139/82
== END 2017-10-06 03:11 | disposition home or self-care (01) ==
LOC: EME 20:08
DX: K50.90 Crohn's disease, unspecified, without complications (principal); K60.3 Anal fistula; K56.699 Other intestinal obstruction unspecified as to partial versus complete obstruction; Z93.3 Colostomy status; K21.9 Gastro-esophageal reflux disease without esophagitis; Z88.8 Allergy status to other drugs, medicaments and biological substances
CPT/HCPCS: 74177; 80053; 81003; 83690; 85027; 99281; 99285; J0744; J1200; J2405; J2930; J3010; J7030; S0030

== ENCOUNTER 2017-12-27 22:28 | Emergency (ER) | payer OTHER ==
[~2017-12-27] VITALS: Ht 172.7 cm; Wt 76.5 kg
[~2017-12-27 22:28] MED LIST changes: +CIPRO500 MG PO; +OXYCODONE HCL15 MG PO
[2017-12-28] MEDS ORDERED: VIBRAMYCIN100 MG PO (01:24)
[2017-12-28] MEDS ORDERED: VISTARIL50 MG PO (01:24)
[2017-12-28 01:41] VITALS: BP 148/93
== END 2017-12-28 01:41 | disposition home or self-care (01) ==
LOC: EME 22:28
DX: L03.311 Cellulitis of abdominal wall (principal); G47.00 Insomnia, unspecified; K50.90 Crohn's disease, unspecified, without complications; Z88.1 Allergy status to other antibiotic agents
CPT/HCPCS: 99281; 99283; Q0177